=== PATIENT | male | born 1930 | race Caucasian/White ===

== ENCOUNTER 2018-05-15 11:14 | Inpatient (IN) | payer MEDICARE, OTHER ==
[2018-05-15] MEDS ORDERED: IPRATROPIUM 0.5 MG/2.5 ML NEBU INHALATION STA (11:22)
[2018-05-15] MEDS ORDERED: methylPREDNISolone SOD SUCCI 125 MG/2 ML VIAL IV STA (11:22)
[2018-05-15] MEDS ORDERED: ALBUTEROL NEBULIZED 2.5 MG/3 ML INHALATION STA (11:22)
[2018-05-15 11:53] LABS: Basophils % (A) 0 %; Eosinophils # (A) 0.4 k/uL (0-0.7); Eosinophils % (A) 8 %; HCT 28.5 % (39.0-53.0); HGB 9.2 gm/dL (13.0-17.5); Lymphocytes # (A) 0.8 k/uL (1.0-4.8); Lymphocytes % (A) 16 %; MCH 29.8 pg (25.0-35.0); MCHC 32.2 g/dL (31.0-37.0); MCV 92.5 fL (80.0-100.0); Mean Platelet Volume 6.8; Monocytes # (A) 0.3 k/uL (0-1.0); Monocytes % (A) 7 %; Neutrophils # (A) 3.4 k/uL (1.3-7.7); Neutrophils % (A) 67 %; Platelet Count 205 k/uL (150-450); RBC 3.08 m/uL (4.30-5.90); RDW 14.6 % (11.5-15.5); WBC 5.1 k/uL (3.8-10.6)
--- NOTE | 2018-05-15 11:57 | ED ---
SOB HPI - General Chief Complaint: Shortness of Breath Stated Complaint: SOB Time Seen by Provider: 05/15/18 11:18 Source: patient, EMS, RN notes reviewed, old records reviewed Mode of arrival: EMS Limitations: no limitations - History of Present Illness Initial Comments: This is an 88-year-old male to the ER for evaluation of shortness of breath. Patient has no history of lung disease. Does see Dr. Dill for pulmonology. Patient denies any pain. Does feel weak and difficulty with activity. Patient does wear oxygen at home states he woke up today without his oxygen on became significantly short of breath significantly weak. Again denies chest pain no recent travel history or sick contacts. Mild cough no increase in mucous or productive MD Complaint: shortness of breath, cough -: hour(s), days(s) Severity: mild Severity scale (1-10): 2 Improves With: oxygen Worsens With: exertion Known History Of: COPD, asthma Associated Symptoms: cough - Related Data Allergies Allergy/AdvReac Type Severity Reaction Status Date / Time acetylcysteine Allergy Anaphylaxis Verified 05/15/18 12:06 [From Mucomyst] Antihistamines - Alkylamine Allergy Unknown Verified 05/15/18 11:32 codeine Allergy Hallucinati Verified 05/15/18 11:32 ons Penicillins Allergy Unknown Verified 05/15/18 11:32 Review of Systems ROS Statement: Those systems with pertinent positive or pertinent negative responses have been documented in the HPI. ROS Other: All systems not noted in ROS Statement are negative. Past Medical History Past Medical History: Coronary Artery Disease (CAD), COPD History of Any Multi-Drug Resistant Organisms: None Reported Past Surgical History: No Surgical Hx Reported Smoking Status: Former smoker Past Alcohol Use History: Daily Past Drug Use History: None Reported General Exam Limitations: no limitations General appearance: alert, in no apparent distress, cachectic Head exam: Present: atraumatic, normocephalic, normal inspection Eye exam: Present: normal appearance, PERRL, EOMI. Absent: scleral icterus, conjunctival injection, periorbital swelling ENT exam: Present: normal exam, mucous membranes dry Neck exam: Present: normal inspection. Absent: tenderness, meningismus, lymphadenopathy Respiratory exam: Present: normal lung sounds bilaterally, wheezes, accessory muscle use, decreased breath sounds, prolonged expiratory. Absent: respiratory distress, rales, rhonchi, stridor Cardiovascular Exam: Present: regular rate, normal rhythm, normal heart sounds. Absent: systolic murmur, diastolic murmur, rubs, gallop, clicks GI/Abdominal exam: Present: soft, normal bowel sounds. Absent: distended, tenderness, guarding, rebound, rigid Extremities exam: Present: normal inspection, full ROM, normal capillary refill. Absent: tenderness, pedal edema, joint swelling, calf tenderness Back exam: Present: normal inspection Neurological exam: Present: alert, oriented X3, CN II-XII intact Psychiatric exam: Present: normal affect, normal mood Skin exam: Present: warm, dry, intact, normal color. Absent: rash Course Vital Signs 05/15/18 05/15/18 05/15/18 11:21 11:30 11:52 Pulse Rate 96 958 H 97 Respiratory 18 18 Rate Blood Pressure 189/79 189/78 O2 Sat by Pulse 96 97 Oximetry 05/15/18 05/15/18 05/15/18 12:00 12:08 12:30 Pulse Rate 96 111 H 94 Respiratory 18 18 Rate Blood Pressure 169/86 182/73 O2 Sat by Pulse 94 L 97 Oximetry - Reevaluation(s) Reevaluation #1: 05/15/18 11:56 Medical record is reviewed Reevaluation #2: 05/15/18 11:56 Breathing is improved after breathing treatment Medical Decision Making - Medical Decision Making 88 male the ER for evaluation shortness of breath and hypoxia, patient has positive pneumonia with COPD exacerbation, will admit for rehydration as well as is likely dehydration. - Lab Data Result diagrams: 05/15/18 11:35 05/15/18 11:35 Lab Results 05/15/18 05/15/18 05/15/18 Range/Units 11:35 11:35 11:35 WBC 5.1 (3.8-10.6) k/uL RBC 3.08 L (4.30-5.90) m/uL Hgb 9.2 L (13.0-17.5) gm/dL Hct 28.5 L (39.0-53.0) % MCV 92.5 (80.0-100.0) fL MCH 29.8 (25.0-35.0) pg MCHC 32.2 (31.0-37.0) g/dL RDW 14.6 (11.5-15.5) % Plt Count 205 (150-450) k/uL Neutrophils % 67 % Lymphocytes % 16 % Monocytes % 7 % Eosinophils % 8 % Basophils % 0 % Neutrophils # 3.4 (1.3-7.7) k/uL Lymphocytes # 0.8 L (1.0-4.8) k/uL Monocytes # 0.3 (0-1.0) k/uL Eosinophils # 0.4 (0-0.7) k/uL Basophils # 0.0 (0-0.2) k/uL PT (9.0-12.0) sec INR (<1.2) APTT (22.0-30.0) sec Sodium 134 L (137-145) mmol/L Potassium 4.7 (3.5-5.1) mmol/L Chloride 107 (98-107) mmol/L Carbon Dioxide 19 L (22-30) mmol/L Anion Gap 8 mmol/L BUN 21 H (9-20) mg/dL Creatinine 1.20 (0.66-1.25) mg/dL Est GFR (CKD-EPI)AfAm 62 (>60 ml/min/1.73 sqM) Est GFR (CKD-EPI)NonAf 53 (>60 ml/min/1.73 sqM) Glucose 94 (74-99) mg/dL Calcium 8.7 (8.4-10.2) mg/dL Magnesium 2.0 (1.6-2.3) mg/dL Total Bilirubin 0.7 (0.2-1.3) mg/dL AST 26 (17-59) U/L ALT 22 (21-72) U/L Alkaline Phosphatase 51 (38-126) U/L Total Creatine Kinase 121 (55-170) U/L CK-MB (CK-2) 3.6 H (0.0-2.4) ng/mL CK-MB (CK-2) Rel Index 3.0 Troponin I 0.019 (0.000-0.034) ng/mL NT-Pro-B Natriuret Pep pg/mL Total Protein 6.3 (6.3-8.2) g/dL Albumin 3.2 L (3.5-5.0) g/dL 05/15/18 05/15/18 Range/Units 11:35 11:35 WBC (3.8-10.6) k/uL RBC (4.30-5.90) m/uL Hgb (13.0-17.5) gm/dL Hct (39.0-53.0) % MCV (80.0-100.0) fL MCH (25.0-35.0) pg MCHC (31.0-37.0) g/dL RDW (11.5-15.5) % Plt Count (150-450) k/uL Neutrophils % % Lymphocytes % % Monocytes % % Eosinophils % % Basophils % % Neutrophils # (1.3-7.7) k/uL Lymphocytes # (1.0-4.8) k/uL Monocytes # (0-1.0) k/uL Eosinophils # (0-0.7) k/uL Basophils # (0-0.2) k/uL PT 9.7 (9.0-12.0) sec INR 1.0 (<1.2) APTT 25.0 (22.0-30.0) sec Sodium (137-145) mmol/L Potassium (3.5-5.1) mmol/L Chloride (98-107) mmol/L Carbon Dioxide (22-30) mmol/L Anion Gap mmol/L BUN (9-20) mg/dL Creatinine (0.66-1.25) mg/dL Est GFR (CKD-EPI)AfAm (>60 ml/min/1.73 sqM) Est GFR (CKD-EPI)NonAf (>60 ml/min/1.73 sqM) Glucose (74-99) mg/dL Calcium (8.4-10.2) mg/dL Magnesium (1.6-2.3) mg/dL Total Bilirubin (0.2-1.3) mg/dL AST (17-59) U/L ALT (21-72) U/L Alkaline Phosphatase (38-126) U/L Total Creatine Kinase (55-170) U/L CK-MB (CK-2) (0.0-2.4) ng/mL CK-MB (CK-2) Rel Index Troponin I (0.000-0.034) ng/mL NT-Pro-B Natriuret Pep 4670 pg/mL Total Protein (6.3-8.2) g/dL Albumin (3.5-5.0) g/dL - EKG Data -: EKG Interpreted by Me (EKG shows normal sinus rhythm rate of 92, [place] 156, QRS 70, QTc 427) EKG shows normal: sinus rhythm Rate: normal - Radiology Data Radiology results: report reviewed (Chest x-ray positive for pneumonia), image reviewed Disposition Clinical Impression: Community acquired pneumonia, Acute exacerbation of chronic obstructive airways disease Disposition: ADMITTED IP TO THIS HOSP Condition: Fair Is patient prescribed a controlled substance at d/c from ED?: No Referrals: Wilfredo Romero MD [Primary Care Provider] - 1-2 days
[2018-05-15 12:02] LABS: Prothrombin Time 9.7 sec (9.0-12.0)
--- NOTE | 2018-05-15 12:02 | XR ---
EXAMINATION TYPE: XR chest 2V DATE OF EXAM: 05/15/2018 HISTORY: difficulty breathing. REFERENCE: NONE. FINDINGS: The lungs are overinflated. The heart is enlarged. There are small, bilateral effusions. Th ere is bibasilar airspace disease. This likely represents patchy pneumonia. IMPRESSION: 1. COPD. 2. CARDIOMEGALY. 3. SMALL, BILATERAL EFFUSIONS. 4. BIBASILAR AIRSPACE DISEASE MAY REPRESENT PATCHY PNEUMONIA.
[2018-05-15 12:06] LABS: Albumin 3.2 g/dL (3.5-5.0); Calcium 8.7 mg/dL (8.4-10.2); Total Bilirubin 0.7 mg/dL (0.2-1.3); Total Protein 6.3 g/dL (6.3-8.2)
[2018-05-15 12:10] LABS: Potassium 4.7 mmol/L (3.5-5.1)
[2018-05-15 12:27] LABS: Creatine Kinase MB 3.6 ng/mL (0.0-2.4); Troponin I 0.019 ng/mL (0.000-0.034)
[2018-05-15] MEDS ORDERED: PNEUMONIA PROTOCOL UTILIZED 1 EACH MISC PO PRN (13:05)
[2018-05-15] MEDS ORDERED: LEVOFLOXACIN 750MG-D5W PMX 750 MG in DEXTROSE/WATER 1 150ML.BAG IVPB STA (13:05)
[2018-05-15] MEDS: SODIUM CHLORIDE 0.9% 1,000 ML IV SCH ×2 (13:59→22:11)
[2018-05-15] MEDS: IPRATROPIUM-ALBUTEROL 3 ML NEB INHALATION SCH ×2 (19:13)
[2018-05-15] MEDS ORDERED: ALBUTEROL NEBULIZED 2.5 MG/3 ML INHALATION PRN (19:54)
[2018-05-15] MEDS: SYMBICORT 160-4.5 MCG INHALER INHALATION SCH (21:16)
[2018-05-15] MEDS: amLODIPine 5 MG TAB PO SCH (22:11)
[2018-05-15] MEDS: DOXAZOSIN 4 MG TAB PO SCH (22:11)
[2018-05-15] MEDS: ATORVASTATIN 10 MG TAB PO SCH (22:11)
--- NOTE | 2018-05-16 06:29 | XR ---
EXAMINATION TYPE: XR chest 2V DATE OF EXAM: 05/16/2018 HISTORY: pneumonia. REFERENCE: Previous study dated 05/15/2018. FINDINGS: The lungs are overinflated. There is bibasilar airspace disease. There are small, bilateral effusions. The heart is mildly enlarged. IMPRESSION: NO SIGNIFICANT INTERVAL CHANGE IN THE APPEARANCE OF THE CHEST.
[2018-05-16 07:30] LABS: Glucose,Whole Blood 133 mg/dL (75-99)
[2018-05-16] MEDS: IPRATROPIUM-ALBUTEROL 3 ML NEB INHALATION SCH ×4 (07:31→19:13)
[2018-05-16] MEDS: SYMBICORT 160-4.5 MCG INHALER INHALATION SCH ×2 (07:32→19:13)
[2018-05-16] MEDS ORDERED: NON-FORMULARY DRUG (Tiotropium Bromide [Spiriva] 1 CAP) INHALATION SCH (08:00)
[2018-05-16] MEDS: methylPREDNISolone SOD SUCCI 40 MG/ML 1 ML VIAL IV SCH ×2 (08:51→16:16)
[2018-05-16] MEDS: CLOPIDOGREL 75 MG TAB PO SCH (08:51)
[2018-05-16] MEDS: ASPIRIN 325 MG TAB PO SCH ×2 (08:52→08:54)
[2018-05-16] MEDS: amLODIPine 5 MG TAB PO SCH ×2 (08:52→21:33)
[2018-05-16] MEDS: ENOXAPARIN 40 MG/0.4 ML SYRINGE SQ SCH (08:52)
[2018-05-16] MEDS: NEBIVOLOL 5 MG TAB PO SCH (08:52)
[2018-05-16] MEDS ORDERED: ACETAMINOPHEN TAB 500 MG TAB PO PRN (08:54)
[2018-05-16] MEDS ORDERED: DOXAZOSIN 4 MG TAB PO SCH (09:00)
[2018-05-16] MEDS: SODIUM CHLORIDE 0.9% 1,000 ML IV SCH ×3 (09:01→21:34)
[2018-05-16] MEDS ORDERED: FUROSEMIDE 10 MG/ML 4 ML VIAL IV STA (09:49)
--- NOTE | 2018-05-16 10:03 | P.CNPUL ---
History of Present Illness Consult date: 05/16/18 Reason for consult: dyspnea, cough, COPD, hypoxemia, abnormal CXR/CT Chief complaint: Shortness of breath History of present illness: Pulmonary consult dated 05/16/2018 88-year-old male who presents to the emergency department with complaints of increasing shortness of breath. The patient has a history of severe chronic objective pulmonary disease. He is oxygen dependent has chronic hypoxemic respiratory failure. His primary care physician is Dr. Nick crews in [place] and he sees my partner, Dr. Dill for his lung disease. The state patient states for the last 3 or 4 days she's had progressive shortness of breath. In addition, he has significant weakness. He really denies other complaints. A bit of a cough but not much not producing any phlegm. No fever. No chills. No chest pain or chest discomfort. The patient was apparently admitted for COPD exacerbation. He is a no code patient. He is 88. His medications include Spiriva HandiHaler, Advair, albuterol, and oxygen therapy. He apparently saw Dr. Dill last back in August of this year. He sees him at the clinic down in [place]. In addition to COPD, he has a history of CAD. He is a former smoker. He smoked for 47 years at 3 packs a day. He quit in 1989. Review of Systems A 14 point review of system is positive for primarily shortness of breath and weakness. He really denies all other complaints. Minimal cough with minimal to no phlegm. No fever or chills. Past Medical History Past Medical History: Coronary Artery Disease (CAD), Cancer, COPD, Hyperlipidemia, Hypertension, Osteoarthritis (OA), Prostate Disorder, Respiratory Disorder, Sleep Apnea/CPAP/BIPAP Additional Past Medical History / Comment(s): skin cancer, shingles, no cpap just o2 at home. History of Any Multi-Drug Resistant Organisms: None Reported Past Surgical History: Heart Catheterization With Stent Additional Past Surgical History / Comment(s): TURP, carotid endartectomy in 1989, Skin CA removal X2 Date of Last Stent Placement:: 03/27/2018 Past Psychological History: No Psychological Hx Reported Smoking Status: Former smoker Past Alcohol Use History: Daily Past Drug Use History: None Reported - Past Family History Mother Additional Family Medical History / Comment(s): of old age Father History Unknown: Yes Additional Family Medical History / Comment(s): of old age. Medications and Allergies Home Medications Medication Instructions Recorded Confirmed Type Albuterol Sulfate [Proair Hfa] 1 - 2 puff INHALATION RT-Q6H PRN 05/15/18 History Aspirin EC [Ecotrin] 325 mg PO Q3D 05/15/18 05/15/18 History Clopidogrel [Plavix] 75 mg PO DAILY 05/15/18 05/15/18 History Doxazosin [Cardura] 4 mg PO DAILY 05/15/18 05/15/18 History Ergocalciferol (Vitamin D2) 50,000 unit PO Q30D 05/15/18 05/15/18 History [Vitamin D2] Fluticasone/Salmeterol [Advair 1 puff INHALATION RT-BID 05/15/18 05/15/18 History 500-50 Diskus] Nebivolol [Bystolic] 5 mg PO DAILY 05/15/18 05/15/18 History Simvastatin [Zocor] 20 mg PO HS 05/15/18 05/15/18 History Tiotropium [place] [Spiriva] 1 cap INHALATION RT-DAILY 05/15/18 05/15/18 History amLODIPine [Norvasc] 5 mg PO BID 05/15/18 05/15/18 History guaiFENesin [Mucinex] 600 mg PO Q12H PRN 05/15/18 05/15/18 History Allergies Allergy/AdvReac Type Severity Reaction Status Date / Time acetylcysteine Allergy Anaphylaxis Verified 05/15/18 21:08 [From Mucomyst] Antihistamines - Alkylamine Allergy Unknown Verified 05/15/18 21:08 codeine Allergy Hallucinati Verified 05/15/18 21:08 ons Penicillins Allergy Unknown Verified 05/15/18 21:08 Physical Exam Osteopathic Statement: *. No significant issues noted on an osteopathic structural exam other than those noted in the History and Physical/Consult. Vitals: Vital Signs Temp Pulse Pulse Resp BP BP Pulse Ox 05/16/18 07:44 92 05/16/18 07:30 96 05/16/18 07:00 97.1 F L 89 22 164/73 97 05/16/18 01:15 98.9 F 85 20 166/65 97 05/15/18 22:08 97.6 F 92 20 162/67 98 05/15/18 19:26 90 05/15/18 19:13 90 05/15/18 17:30 97.8 F 100 20 155/84 96 05/15/18 16:30 98.8 F 90 161/73 96 05/15/18 16:00 89 160/76 97 05/15/18 15:30 96 18 149/72 96 05/15/18 15:00 98 18 168/79 96 05/15/18 14:30 100 18 169/82 96 05/15/18 14:00 100 16 166/79 94 L 05/15/18 13:30 101 H 16 158/79 94 L 05/15/18 13:00 102 H 18 161/86 93 L 05/15/18 12:30 94 18 182/73 97 05/15/18 12:08 111 H 05/15/18 12:00 96 18 169/86 94 L 05/15/18 11:52 97 05/15/18 11:30 958 H 18 189/78 97 05/15/18 11:21 96 18 189/79 96 Intake and Output 05/15/18 05/16/18 05/16/18 22:59 06:59 14:59 Intake Total 100 Output Total 600 Balance -600 100 Intake: Oral 100 Output: Urine 600 Other: Voiding Method Urinal # Voids 2 Weight 129.6 kg No acute distress, oriented 3. Nasal O2 in place. HEENT examination is grossly unremarkable. Mucous membranes are moist. No oral lesions. Neck supple. Full range of motion. No adenopathy thyromegaly or neck vein distention. Cardiovascular examination reveals regular rhythm rate. S1-S2 normal. No S3 or S4. No discernible murmur noted. Heart sounds are distant. Lungs reveal severely diminished breath sounds bilaterally. There are diffuse bilateral rhonchi and wheezes. No crackles. There is prolongation on forced maneuver. Breath sounds equal bilaterally but diminished throughout. Abdomen soft bowel sounds are heard. No masses or tenderness. Extremities are intact. 1+ pitting edema noted to the lower extremities. No cyanosis or clubbing Skin is without rash or lesion. Neurologic examination is brief but nonfocal. Results - Laboratory Findings CBC and BMP: 05/15/18 11:35 05/15/18 11:35 PT/INR, D-dimer PT 9.7 sec (9.0-12.0) 05/15/18 11:35 INR 1.0 (<1.2) 05/15/18 11:35 Abnormal lab findings: Abnormal Labs 05/15/18 05/15/18 05/15/18 11:35 11:35 11:35 RBC 3.08 L Hgb 9.2 L Hct 28.5 L Lymphocytes # 0.8 L Sodium 134 L Carbon Dioxide 19 L BUN 21 H POC Glucose (mg/dL) CK-MB (CK-2) 3.6 H Albumin 3.2 L 05/16/18 07:26 RBC Hgb Hct Lymphocytes # Sodium Carbon Dioxide BUN POC Glucose (mg/dL) 133 H CK-MB (CK-2) Albumin - Diagnostic Findings Chest x-ray: report reviewed, image reviewed (Chest x-ray, labs and medications are reviewed.) Assessment and Plan Assessment: Assessment COPD exacerbation in a patient with severe oxygen-dependent COPD Chronic hypoxemic respiratory failure Possible mild fluid overload Anemia Mild to moderate lower extremity pitting edema History of CAD History of hypertension History of hyperlipidemia History of vitamin D deficiency Plan: Plan dated 05/16/2018 The patient is currently on DuoNeb's 4 times a day and when necessary, Levaquin , Symbicort, and Solu-Medrol. The patient's IV will be turned down to KVO. In addition, because we believe the patient to have some fluid overload, he'll get Lasix 40 mg IV push times one. The patient is feeling better today than yesterday. His overall prognosis is guarded. He will see Dr. Dill on rounds tomorrow. Additional recommendations and suggestions are forthcoming. Time with Patient: Greater than 30
[2018-05-16 12:04] LABS: Glucose,Whole Blood 124 mg/dL (75-99)
[2018-05-16] MEDS: DOCUSATE 100 MG CAP PO SCH (16:17)
[2018-05-16 17:27] LABS: Glucose,Whole Blood 135 mg/dL (75-99)
[2018-05-16] MEDS: AZITHROMYCIN 500 MG in SODIUM CHLORIDE 0.9% 250 ML IVPB SCH (17:56)
--- NOTE | 2018-05-16 19:18 | HP ---
HISTORY AND PHYSICAL DATE OF SERVICE: 05/17/2018 CHIEF COMPLAINT: Shortness with cough. HISTORY OF PRESENT ILLNESS: This 88-year-old gentleman with a past medical history of multiple medical problems, including history of CAD, COPD, history of hypertension, hyperlipidemia, history of DJD being followed by as well as Dr. Dill in the outpatient setting complaining of shortness of breath and cough for the past several days. The patient was feeling weak and some difficulty in walking and because of increasing difficulty, the patient came to [facility] and was admitted to the hospital further recommendations to follow. Chest x-ray showed bilateral bibasilar pneumonia. There is no history of fever, rigors or chills. No history of headache, loss of consciousness, or seizures. PAST MEDICAL HISTORY: History of COPD, hypertension, DJD, history of prostate disorder, history of sleep apnea. MEDICATIONS: Prior to admission: Home medications are: 1. Mucinex 60 mg p.o. b.i.d. p.r.n. 2. Norvasc 5 mg p.o. b.i.d. 3. Spiriva 1 daily. 4. Zocor 20 mg q.h.s. 5. Bystolic 5 mg p.o. daily. 6. Advair Diskus 1 puff b.i.d. 7. Cardura 4 mg p.o. daily. 8. Plavix 75 mg p.o. daily. 9. Ecotrin 320 mg p.o. q3 days. 10.Pro-Air, 1 to 2 puffs q.6 hours. 11.Vitamin D2, 50,000 every 30 days. ALLERGIES: MUCOMYST, CODEINE, PENICILLIN. FAMILY HISTORY: of old age. SOCIAL HISTORY: Occasional alcohol. Previous history of smoking. No history of current smoking. REVIEW OF SYSTEMS: ENT: Diminished hearing and diminished vision. CARDIOVASCULAR: No angina or palpitations. RESPIRATORY: As mentioned. GI: No nausea or vomiting. no dysuria. NERVOUS SYSTEM: No numbness, weakness. ALLERGY/IMMUNOLOGY: No asthma or hay fever. MUSCULOSKELETAL: As mentioned earlier. HEMATOLOGY/ONCOLOGY: No history of anemia. ENDOCRINE: No history of diabetes or hypothyroidism. CONSTITUTIONAL: As mentioned earlier. Dermatology: Negative. Rheumatology: Negative. Psychiatry: As mentioned earlier. PHYSICAL EXAMINATION: GENERAL: Patient is alert, oriented x3. VITAL SIGNS: Pulse is 92. Blood pressure 164/70, respiration 22, temperature 97.1, pulse ox 97% on 3 L. HEENT: Conjunctivae normal. NECK: No jugular venous distention. CARDIOVASCULAR: S1, S2 muffled. RESPIRATORY: Breath sounds diminished in the bases. Bilateral scattered rhonchi and crackles. Expiratory wheezing also present. ABDOMEN: Soft, nontender. LEGS are no edema. No swelling. CENTRAL NERVOUS SYSTEM: No focal deficits. LABS: WBC 5, hemoglobin 10.2 and glucose 133. ASSESSMENT: 1. Shortness of breath with possible chronic obstructive pulmonary disease acute exacerbation with bibasilar pneumonia possibly community acquired. 2. Possibly gram-negative. 3. Hyponatremia. 4. History of nicotine dependence. 5. History of hypertension. 6. History of hyperlipidemia. 7. History of degenerative joint disease. 8. History of sleep apnea. 9. History of gastroesophageal reflux disease. 10.History of TURP. 11.History of carotid endarterectomy. 12.History of coronary artery disease. 13.NO CODE, NO CPR, NO VENT. RECOMMENDATIONS AND DISCUSSION: This 88-year-old gentleman presented with multiple complex medical issues. We will monitor the patient closely. Continue the current medications. Continue symptomatic treatment. Broad-spectrum IV antibiotics, bronchodilators, steroids. Monitor blood sugars closely. DVT prophylaxis. We will closely follow with Dr. Daily. Guarded prognosis. Further recommendations to follow. See orders for details. IV Levaquin has been initiated. MMODL / IJN: [id number] / MTDD
[2018-05-16 20:39] LABS: Glucose,Whole Blood 217 mg/dL (75-99)
[2018-05-16] MEDS: ATORVASTATIN 10 MG TAB PO SCH (21:33)
[2018-05-16] MEDS: DOXAZOSIN 4 MG TAB PO SCH (21:33)
[2018-05-16] MEDS ORDERED: INSULIN ASPART 100 UNIT/ML 1 ML 10 ML VIAL SQ ONE (21:39)
[2018-05-17] MEDS: methylPREDNISolone SOD SUCCI 40 MG/ML 1 ML VIAL IV SCH ×4 (00:26→23:23)
[2018-05-17 06:59] LABS: Glucose,Whole Blood 123 mg/dL (75-99)
[2018-05-17] MEDS: SYMBICORT 160-4.5 MCG INHALER INHALATION SCH ×2 (07:13→19:19)
[2018-05-17] MEDS: IPRATROPIUM-ALBUTEROL 3 ML NEB INHALATION SCH ×4 (07:13→19:19)
[2018-05-17] MEDS: DOCUSATE 100 MG CAP PO SCH ×2 (08:19→21:11)
[2018-05-17] MEDS: NEBIVOLOL 5 MG TAB PO SCH (08:19)
[2018-05-17] MEDS: amLODIPine 5 MG TAB PO SCH ×2 (08:19→21:11)
[2018-05-17] MEDS: CLOPIDOGREL 75 MG TAB PO SCH (08:20)
[2018-05-17] MEDS: ENOXAPARIN 40 MG/0.4 ML SYRINGE SQ SCH (08:20)
[2018-05-17] MEDS: AZITHROMYCIN 500 MG in SODIUM CHLORIDE 0.9% 250 ML IVPB SCH (08:20)
[2018-05-17] MEDS: INSULIN ASPART 100 UNIT/ML 1 ML 10 ML VIAL SQ SCH ×4 (08:21→20:54)
[2018-05-17] MEDS: PANTOPRAZOLE 40 MG TABLET PO SCH (08:21)
[2018-05-17] MEDS ORDERED: ASPIRIN 325 MG TAB PO SCH (09:00)
[2018-05-17 09:44] LABS: Basophils % (A) 0 %; Eosinophils % (A) 1 %; HCT 28.9 % (39.0-53.0); HGB 9.4 gm/dL (13.0-17.5); Lymphocytes # (A) 0.3 k/uL (1.0-4.8); Lymphocytes % (A) 6 %; MCH 30.2 pg (25.0-35.0); MCHC 32.5 g/dL (31.0-37.0); MCV 93.1 fL (80.0-100.0); Mean Platelet Volume 6.9; Monocytes # (A) 0.1 k/uL (0-1.0); Monocytes % (A) 3 %; Neutrophils # (A) 4.2 k/uL (1.3-7.7); Neutrophils % (A) 90 %; Platelet Count 226 k/uL (150-450); RDW 14.5 % (11.5-15.5); WBC 4.7 k/uL (3.8-10.6)
[2018-05-17 10:12] LABS: Calcium 8.9 mg/dL (8.4-10.2); Potassium 4.6 mmol/L (3.5-5.1)
[2018-05-17 11:59] LABS: Glucose,Whole Blood 141 mg/dL (75-99)
[2018-05-17] MEDS ORDERED: LEVOFLOXACIN 750MG-D5W PMX 750 MG in DEXTROSE/WATER 1 150ML.BAG IVPB SCH (14:00)
[2018-05-17 14:15] VITALS: BMI 17.3
[2018-05-17 16:56] LABS: Glucose,Whole Blood 151 mg/dL (75-99)
--- NOTE | 2018-05-17 17:09 | P.PN ---
Subjective Progress Note Date: 05/17/18 Principal diagnosis: COPD exacerbation, chronic hypoxemic respiratory failure Pulmonary consult dated 05/16/2018 88-year-old male who presents to the emergency department with complaints of increasing shortness of breath. The patient has a history of severe chronic objective pulmonary disease. He is oxygen dependent has chronic hypoxemic respiratory failure. His primary care physician is Dr. Nick crews in [place] and he sees my partner, Dr. Dill for his lung disease. The state patient states for the last 3 or 4 days she's had progressive shortness of breath. In addition, he has significant weakness. He really denies other complaints. A bit of a cough but not much not producing any phlegm. No fever. No chills. No chest pain or chest discomfort. The patient was apparently admitted for COPD exacerbation. He is a no code patient. He is 88. His medications include Spiriva HandiHaler, Advair, albuterol, and oxygen therapy. He apparently saw Dr. Dill last back in August of this year. He sees him at the clinic down in [place]. In addition to COPD, he has a history of CAD. He is a former smoker. He smoked for 47 years at 3 packs a day. He quit in 1989. On 05/17/2018 patient seen in follow-up on medical surgical floor. Reports feeling better, breathing easier, lung sounds are clear, no rhonchi or wheezes noted on today's exam, patient is on 3 L per nasal cannula, pulse ox of 98%, he is afebrile, no worsening shortness of breath, no fever or chills. Blood culture showed no growth after 48 hours, sputum culture is pending. Since antibiotic coverage includes Zithromax and Rocephin. She continues on IV steroids, nebulized bronchodilators, liquid improving. Objective - Vital Signs Vital signs: Vital Signs Temp 97.4 F L 05/17/18 15:00 Pulse 90 05/17/18 15:45 Resp 18 05/17/18 15:00 BP 140/71 05/17/18 15:00 Pulse Ox 96 05/17/18 15:00 Intake & Output 05/16/18 05/17/18 05/17/18 18:59 06:59 18:59 Intake Total 610 Output Total 925 450 800 Balance -925 -450 -190 Weight 51.8 kg Intake: Intake, IV Titration 610 Amount Azithromycin 500 mg In 250 Sodium Chloride 0.9% 250 ml @ 250 mls/hr IVPB DAILY [facility] Rx#:[id number] Levofloxacin 750Mg-D5w 150 Pmx 750 mg In Dextrose/ Water 1 150ml.bag @ 100 mls/hr IVPB Q48H [facility] Rx#: [id number] Sodium Chloride 0.9% 1, 160 000 ml @ 20 mls/hr IV . Q24H [facility] Rx#:[id number] cefTRIAXone 1,000 mg In 50 Sodium Chloride 0.9% 50 ml @ 100 mls/hr IVPB Q24HR [facility] Rx#:[id number] Output: Urine 925 450 800 Other: Voiding Method Urinal # Voids 1 - Exam No acute distress, oriented 3. Nasal O2 in place. HEENT examination is grossly unremarkable. Mucous membranes are moist. No oral lesions. Neck supple. Full range of motion. No adenopathy thyromegaly or neck vein distention. Cardiovascular examination reveals regular rhythm rate. S1-S2 normal. No S3 or S4. No discernible murmur noted. Heart sounds are distant. Lungs reveal severely diminished breath sounds bilaterally. There are diffuse bilateral rhonchi and wheezes. No crackles. There is prolongation on forced maneuver. Breath sounds equal bilaterally but diminished throughout. Abdomen soft bowel sounds are heard. No masses or tenderness. Extremities are intact. 1+ pitting edema noted to the lower extremities. No cyanosis or clubbing Skin is without rash or lesion. Neurologic examination is brief but nonfocal. - Labs CBC & Chem 7: 05/17/18 08:27 05/17/18 08:27 Labs: Abnormal Lab Results - Last 24 Hours (Table) 05/16/18 05/16/18 05/17/18 Range/Units 17:24 20:38 06:56 RBC (4.30-5.90) m/uL Hgb (13.0-17.5) gm/dL Hct (39.0-53.0) % Lymphocytes # (1.0-4.8) k/uL Sodium (137-145) mmol/L BUN (9-20) mg/dL Creatinine (0.66-1.25) mg/dL Glucose (74-99) mg/dL POC Glucose (mg/dL) 135 H 217 H 123 H (75-99) mg/dL 05/17/18 05/17/18 05/17/18 Range/Units 08:27 08:27 11:56 RBC 3.10 L (4.30-5.90) m/uL Hgb 9.4 L (13.0-17.5) gm/dL Hct 28.9 L (39.0-53.0) % Lymphocytes # 0.3 L (1.0-4.8) k/uL Sodium 134 L (137-145) mmol/L BUN 27 H (9-20) mg/dL Creatinine 1.36 H (0.66-1.25) mg/dL Glucose 143 H (74-99) mg/dL POC Glucose (mg/dL) 141 H (75-99) mg/dL 05/17/18 Range/Units 16:42 RBC (4.30-5.90) m/uL Hgb (13.0-17.5) gm/dL Hct (39.0-53.0) % Lymphocytes # (1.0-4.8) k/uL Sodium (137-145) mmol/L BUN (9-20) mg/dL Creatinine (0.66-1.25) mg/dL Glucose (74-99) mg/dL POC Glucose (mg/dL) 151 H (75-99) mg/dL Microbiology - Last 24 Hours (Table) 05/15/18 13:49 Blood Culture - Preliminary Blood No Growth after 48 hours 05/16/18 15:55 Gram Stain - Preliminary Sputum Sputum Culture - Preliminary Assessment and Plan Plan: COPD exacerbation in a patient with severe oxygen-dependent COPD Chronic hypoxemic respiratory failure Possible mild fluid overload Anemia Mild to moderate lower extremity pitting edema History of CAD History of hypertension History of hyperlipidemia History of vitamin D deficiency Plan: Continue current antibiotic coverage, awaiting final report on the sputum culture. No fever or chills, continue IV steroids, Symbicort, DuoNeb. Clinically patient is improving, increase activity as tolerated, ambulate patient. Possible discharge home in the next 24 hours, provided patient continues to improve. I performed a history & physical examination of the patient and discussed their management with my nurse practitioner, Tonja Scott. I reviewed the nurse practitioner's note and agree with the documented findings and plan of care. Lung sounds are positive for clear diminished breath sounds. The findings and the impression was discussed with the patient. I attest to the documentation by the nurse practitioner. Time with Patient: Less than 30
[2018-05-17] MEDS: SODIUM CHLORIDE 0.9% 1,000 ML IV SCH (20:53)
[2018-05-17 20:54] LABS: Glucose,Whole Blood 121 mg/dL (75-99)
[2018-05-17] MEDS: DOXAZOSIN 4 MG TAB PO SCH (21:11)
[2018-05-17] MEDS: ATORVASTATIN 10 MG TAB PO SCH (21:11)
--- NOTE | 2018-05-17 21:16 | PN ---
PROGRESS NOTE DATE OF SERVICE: 05/17/2018 This 88-year-old gentleman admitted with shortness of breath and COPD acute exacerbation. Bibasilar pneumonia is being closely monitored. No chest pain. No palpitations. No fever. PHYSICAL EXAM: Alert and oriented x3. Pulse is 90, blood pressure 140/47, respiration 18, temperature 97.4, pulse ox 98% on room air. HEENT: Conjunctivae normal. Oral mucosa moist. Neck is no jugular venous distention. No carotid bruit. No lymph node enlargement. CARDIOVASCULAR: S1, S2. RESPIRATORY: Breath sounds diminished in the bases. Bilateral scattered rhonchi and crackles. ABDOMEN: Soft, nontender. LEGS: No edema. NERVOUS SYSTEM: No focal deficits. LAB STUDIES: WBC 4.2, hemoglobin is 9.4, sodium 134, creatinine is 1.36. ASSESSMENT: 1. Shortness of breath with possible chronic obstructive pulmonary disease acute exacerbation with bibasilar pneumonia possibly community acquired. 2. Possible gram-negative pneumonia. 3. Hyponatremia. 4. History of nicotine dependence. 5. History of hypertension. 6. History of hyperlipidemia. 7. History of degenerative joint disease. 8. History of sleep apnea. 9. History of gastroesophageal reflux disease. 10.History of TURP. 11.History of carotid endarterectomies. 12.History of coronary artery disease, stent. 13.NO CODE, NO CPR, NO VENT. RECOMMENDATIONS AND DISCUSSION: I recommend to continue current medications. Continue with antibiotics. Continue with the rest of medications. Otherwise, closely follow with Pulmonary. Guarded prognosis. Further recommendations to follow. MMODL / IJN: [id number] /
[2018-05-18] MEDS: IPRATROPIUM-ALBUTEROL 3 ML NEB INHALATION SCH ×2 (07:02→10:55)
[2018-05-18] MEDS: SYMBICORT 160-4.5 MCG INHALER INHALATION SCH (07:02)
[2018-05-18 07:31] LABS: Glucose,Whole Blood 119 mg/dL (75-99)
[2018-05-18] MEDS: INSULIN ASPART 100 UNIT/ML 1 ML 10 ML VIAL SQ SCH ×2 (07:44→13:23)
[2018-05-18 08:59] LABS: Basophils % (A) 0 %; Eosinophils # (A) 0.1 k/uL (0-0.7); Eosinophils % (A) 1 %; HCT 28.2 % (39.0-53.0); HGB 9.2 gm/dL (13.0-17.5); Lymphocytes # (A) 0.3 k/uL (1.0-4.8); Lymphocytes % (A) 6 %; MCH 30.4 pg (25.0-35.0); MCHC 32.5 g/dL (31.0-37.0); MCV 93.7 fL (80.0-100.0); Mean Platelet Volume 6.9; Monocytes # (A) 0.2 k/uL (0-1.0); Monocytes % (A) 4 %; Neutrophils # (A) 4.9 k/uL (1.3-7.7); Neutrophils % (A) 89 %; Platelet Count 234 k/uL (150-450); RBC 3.01 m/uL (4.30-5.90); RDW 14.6 % (11.5-15.5); WBC 5.5 k/uL (3.8-10.6)
[2018-05-18] MEDS ORDERED: AZITHROMYCIN 500 MG TAB PO SCH (09:00)
[2018-05-18] MEDS ORDERED: ENOXAPARIN 30 MG/0.3 ML SYRINGE SQ SCH (09:00)
[2018-05-18 09:18] LABS: Potassium 4.8 mmol/L (3.5-5.1)
[2018-05-18] MEDS: PANTOPRAZOLE 40 MG TABLET PO SCH (09:48)
[2018-05-18] MEDS: methylPREDNISolone SOD SUCCI 40 MG/ML 1 ML VIAL IV SCH (09:48)
[2018-05-18] MEDS: amLODIPine 5 MG TAB PO SCH (09:48)
[2018-05-18] MEDS: CLOPIDOGREL 75 MG TAB PO SCH (09:49)
[2018-05-18] MEDS: DOCUSATE 100 MG CAP PO SCH (09:49)
[2018-05-18] MEDS: NEBIVOLOL 5 MG TAB PO SCH (09:49)
[2018-05-18 11:23] LABS: Glucose,Whole Blood 153 mg/dL (75-99)
--- NOTE | 2018-05-18 13:12 | P.PN ---
Subjective Progress Note Date: 05/18/18 Principal diagnosis: COPD exacerbation, chronic hypoxemic respiratory failure Pulmonary consult dated 05/16/2018 88-year-old male who presents to the emergency department with complaints of increasing shortness of breath. The patient has a history of severe chronic objective pulmonary disease. He is oxygen dependent has chronic hypoxemic respiratory failure. His primary care physician is Dr. Nick crews in [place] and he sees my partner, Dr. Dill for his lung disease. The state patient states for the last 3 or 4 days she's had progressive shortness of breath. In addition, he has significant weakness. He really denies other complaints. A bit of a cough but not much not producing any phlegm. No fever. No chills. No chest pain or chest discomfort. The patient was apparently admitted for COPD exacerbation. He is a no code patient. He is 88. His medications include Spiriva HandiHaler, Advair, albuterol, and oxygen therapy. He apparently saw Dr. Dill last back in August of this year. He sees him at the clinic down in [place]. In addition to COPD, he has a history of CAD. He is a former smoker. He smoked for 47 years at 3 packs a day. He quit in 1989. On 05/17/2018 patient seen in follow-up on medical surgical floor. Reports feeling better, breathing easier, lung sounds are clear, no rhonchi or wheezes noted on today's exam, patient is on 3 L per nasal cannula, pulse ox of 98%, he is afebrile, no worsening shortness of breath, no fever or chills. Blood culture showed no growth after 48 hours, sputum culture is pending. Since antibiotic coverage includes Zithromax and Rocephin. She continues on IV steroids, nebulized bronchodilators, liquid improving. On 05/18/2018 patient seen in follow-up on medical surgical floor. Continues to improve, vital signs are stable, patient is afebrile, 3 L of oxygen, patient' s pulse ox is 96%. Lung sounds are positive for a few scattered wheezes, overall improved. Blood and sputum cultures are negative. No new chest x-rays , patient has been treated with empiric antibiotics, neighbors bronchodilators, and IV steroids, he has improved, and is stable for discharge home today. Objective - Vital Signs Vital signs: Vital Signs Temp 96.5 F L 05/18/18 06:02 Pulse 88 05/18/18 10:55 Resp 16 05/18/18 06:02 BP 165/74 05/18/18 06:02 Pulse Ox 96 05/18/18 07:02 Intake & Output 05/17/18 05/18/18 05/18/18 18:59 06:59 18:59 Intake Total 1210 160 Output Total 950 850 Balance 260 -690 Weight 51.8 kg Intake: IV 160 Sodium Chloride 0.9% 1, 160 000 ml @ 20 mls/hr IV . Q24H [facility] Rx#:[id number] Intake, IV Titration 610 Amount Azithromycin 500 mg In 250 Sodium Chloride 0.9% 250 ml @ 250 mls/hr IVPB DAILY [facility] Rx#:[id number] Levofloxacin 750Mg-D5w 150 Pmx 750 mg In Dextrose/ Water 1 150ml.bag @ 100 mls/hr IVPB Q48H [facility] Rx#: [id number] Sodium Chloride 0.9% 1, 160 000 ml @ 20 mls/hr IV . Q24H [facility] Rx#:[id number] cefTRIAXone 1,000 mg In 50 Sodium Chloride 0.9% 50 ml @ 100 mls/hr IVPB Q24HR [facility] Rx#:[id number] Oral 600 Output: Urine 950 850 Other: # Voids 1 - Exam No acute distress, oriented 3. Nasal O2 in place. HEENT examination is grossly unremarkable. Mucous membranes are moist. No oral lesions. Neck supple. Full range of motion. No adenopathy thyromegaly or neck vein distention. Cardiovascular examination reveals regular rhythm rate. S1-S2 normal. No S3 or S4. No discernible murmur noted. Heart sounds are distant. Lungs reveal severely diminished breath sounds bilaterally. There are diffuse bilateral rhonchi and wheezes. No crackles. There is prolongation on forced maneuver. Breath sounds equal bilaterally but diminished throughout. Abdomen soft bowel sounds are heard. No masses or tenderness. Extremities are intact. 1+ pitting edema noted to the lower extremities. No cyanosis or clubbing Skin is without rash or lesion. Neurologic examination is brief but nonfocal. - Labs CBC & Chem 7: 05/18/18 08:33 05/18/18 08:33 Labs: Abnormal Lab Results - Last 24 Hours (Table) 05/17/18 05/17/18 05/18/18 Range/Units 16:42 20:53 07:01 RBC (4.30-5.90) m/uL Hgb (13.0-17.5) gm/dL Hct (39.0-53.0) % Lymphocytes # (1.0-4.8) k/uL Sodium (137-145) mmol/L Carbon Dioxide (22-30) mmol/L BUN (9-20) mg/dL Creatinine (0.66-1.25) mg/dL Glucose (74-99) mg/dL POC Glucose (mg/dL) 151 H 121 H 119 H (75-99) mg/dL 05/18/18 05/18/18 05/18/18 Range/Units 08:33 08:33 11:18 RBC 3.01 L (4.30-5.90) m/uL Hgb 9.2 L (13.0-17.5) gm/dL Hct 28.2 L (39.0-53.0) % Lymphocytes # 0.3 L (1.0-4.8) k/uL Sodium 131 L (137-145) mmol/L Carbon Dioxide 20 L (22-30) mmol/L BUN 34 H (9-20) mg/dL Creatinine 1.34 H (0.66-1.25) mg/dL Glucose 124 H (74-99) mg/dL POC Glucose (mg/dL) 153 H (75-99) mg/dL Microbiology - Last 24 Hours (Table) 05/16/18 15:55 Gram Stain - Final Sputum Sputum Culture - Final 05/15/18 13:49 Blood Culture - Preliminary Blood No Growth after 48 hours Assessment and Plan Plan: COPD exacerbation in a patient with severe oxygen-dependent COPD Chronic hypoxemic respiratory failure Possible mild fluid overload Anemia Mild to moderate lower extremity pitting edema History of CAD History of hypertension History of hyperlipidemia History of vitamin D deficiency Plan: He continues to improve, no fever or chills, no acute events overnight, breathing easier. Cultures remain negative, no fever or chills. From pulmonary perspective patient is stable for discharge home today oral course of Levaquin, prednisone taper, and his maintenance inhalers and nebulized treatments. Follow-up with Dr. Dill in the office in one week. I performed a history & physical examination of the patient and discussed their management with my nurse practitioner, Tonja Scott. I reviewed the nurse practitioner's note and agree with the documented findings and plan of care. Lung sounds are positive for clear diminished breath sounds. The findings and the impression was discussed with the patient. I attest to the documentation by the nurse practitioner. Time with Patient: Less than 30
[2018-05-18 15:23] VITALS: BP 138/70; PULSE 103; RESP 20; TEMP 97.2
[2018-05-18 21:16] LABS: Hemoglobin A1C 5.2 % (4.0-6.0)
[2018-05-19] MEDS ORDERED: LEVOFLOXACIN 750 MG TAB PO SCH (14:00)
--- NOTE | 2018-05-20 15:28 | P.DS ---
Providers Date of admission: 05/15/18 13:05 Expected date of discharge: 05/18/18 Attending physician: Vilma Conklin Consults: 05/15/18 13:05 Consult Physician Routine Consulting Provider: Wilder Dill Consult Reason/Comments: known Do you want consulting provider notified?: Yes Primary care physician: Wilfredo Romero Hospital Course: Final Diagnoses: -Acute COPD exacerbation with bibasilar pneumonia, possibly community-acquired, possibly gram-negative -Hyponatremia - Chronic hypoxemic respiratory failure -History of nicotine dependence -Acute renal failure Hospital course: This is an 88-year-old gentleman admitted with acute COPD exacerbation, bibasilar pneumonia and multiple other medical issues. Evaluated by pulmonary. Maintained on nebulized bronchodilators, IV steroids, antibiotics. Sputum culture reporting normal respiratory donna. Significant clinical improvement. Patient has been cleared for discharge by pulmonary. Patient is being discharged home in stable condition with guarded prognosis. The impression and plan of care has been dictated as directed. : I performed a history and examination of this patient, discussed the same with the dictator. I agree with the dictator's note ,documented as a scribe. Any additional findings or plans will be noted. Time taken: 35 minutes Patient Condition at Discharge: Stable Plan - Discharge Summary Discharge Rx Participant: No New Discharge Prescriptions: New Docusate [Colace] 100 mg PO BID cap Levofloxacin [Levaquin] 750 mg PO Q48H #5 tab predniSONE 10 mg PO DIRECTED #30 tab Continue Simvastatin [Zocor] 20 mg PO HS Doxazosin [Cardura] 4 mg PO DAILY Clopidogrel [Plavix] 75 mg PO DAILY Aspirin EC [Ecotrin] 325 mg PO Q3D guaiFENesin [Mucinex] 600 mg PO Q12H PRN PRN Reason: Cold Symptoms amLODIPine [Norvasc] 5 mg PO BID Tiotropium [place] [Spiriva] 1 cap INHALATION RT-DAILY Nebivolol [Bystolic] 5 mg PO DAILY Fluticasone/Salmeterol [Advair 500-50 Diskus] 1 puff INHALATION RT-BID Ergocalciferol (Vitamin D2) [Vitamin D2] 50,000 unit PO Q30D Changed Albuterol Sulfate [Proair Hfa] 1 - 2 puff INHALATION RT-Q6H #0 Discharge Medication List Aspirin EC [Ecotrin] 325 mg PO Q3D 10/20/18 [History] Clopidogrel [Plavix] 75 mg PO DAILY 05/15/18 [History] Doxazosin [Cardura] 4 mg PO DAILY 05/15/18 [History] Ergocalciferol (Vitamin D2) [Vitamin D2] 50,000 unit PO Q30D 05/15/18 [History] Fluticasone/Salmeterol [Advair 500-50 Diskus] 1 puff INHALATION RT-BID 05/15/18 [History] Nebivolol [Bystolic] 5 mg PO DAILY 05/15/18 [History] Simvastatin [Zocor] 20 mg PO HS 05/15/18 [History] Tiotropium [place] [Spiriva] 1 cap INHALATION RT-DAILY 05/15/18 [History] amLODIPine [Norvasc] 5 mg PO BID 05/15/18 [History] guaiFENesin [Mucinex] 600 mg PO Q12H PRN 05/15/18 [History] Albuterol Sulfate [Proair Hfa] 1 - 2 puff INHALATION RT-Q6H #0 05/18/18 [Rx] Docusate [Colace] 100 mg PO BID cap 05/18/18 [Rx] Levofloxacin [Levaquin] 750 mg PO Q48H #5 tab 05/18/18 [Rx] predniSONE 10 mg PO DIRECTED #30 tab 05/18/18 [Rx] Follow up Appointment(s)/Referral(s): Wilfredo Romero MD [Primary Care Provider] - 05/19/18 10:00 am Wilder Dill MD [STAFF PHYSICIAN] - 05/26/18 2:30 pm (Will see Lily Sims DNP) Ambulatory/Diagnostic Orders: Complete Blood Count w/diff [LAB.AMB] Time Frame: 3 Days, Location: None Selected Patient Instructions/Handouts: COPD (Chronic Obstructive Pulmonary Disease) (DC ), Community Acquired Pneumonia (DC), Chronic Lung Disease and Infection Prevention (DC) Activity/Diet/Wound Care/Special Instructions: Activity as tolerated until follow up appointments. Use home oxygen as needed. Discharge Disposition: HOME SELF-CARE
[2018-05-27] MEDS ORDERED: ERGOCALCIFEROL 50,000 UNIT CAP PO SCH (12:00)
== END 2018-05-18 15:03 | disposition home or self-care (01) | DRG 178 ==
LOC: EC 11:14 → 4MS4W 13:05
PROVIDERS: ADMIT Hospitalist; ATTEND Hospitalist
DX: J15.6 Pneumonia due to other Gram-negative bacteria (principal); J96.11 Chronic respiratory failure with hypoxia; E87.1 Hypo-osmolality and hyponatremia; J44.0 Chronic obstructive pulmonary disease with (acute) lower respiratory infection; J44.1 Chronic obstructive pulmonary disease with (acute) exacerbation; N17.9 Acute kidney failure, unspecified; Z87.891 Personal history of nicotine dependence; D64.9 Anemia, unspecified; E78.5 Hyperlipidemia, unspecified; E86.0 Dehydration; G47.30 Sleep apnea, unspecified; I10 Essential (primary) hypertension; I25.10 Atherosclerotic heart disease of native coronary artery without angina pectoris; K21.9 Gastro-esophageal reflux disease without esophagitis; Z79.02 Long term (current) use of antithrombotics/antiplatelets; Z79.899 Other long term (current) drug therapy; Z85.828 Personal history of other malignant neoplasm of skin; Z90.79 Acquired absence of other genital organ(s); Z95.5 Presence of coronary angioplasty implant and graft; Z99.81 Dependence on supplemental oxygen; N42.9 Disorder of prostate, unspecified; Z88.5 Allergy status to narcotic agent; Z88.0 Allergy status to penicillin; Z88.8 Allergy status to other drugs, medicaments and biological substances; Z66 Do not resuscitate; E87.70 Fluid overload, unspecified; Z86.69 Personal history of other diseases of the nervous system and sense organs; E55.9 Vitamin D deficiency, unspecified; M19.90 Unspecified osteoarthritis, unspecified site
CPT/HCPCS: 36415; 71046; 80048; 80053; 82550; 82553; 83036; 83735; 83880; 84484; 85025; 85610; 85730; 87040; 87070; 87205; 93005; 94640; 94760; 96365; 96366; 96375; 99285